=== PATIENT | female | born 2005 | race American Indian/Alaskan Native ===

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

== ENCOUNTER 2024-05-04 17:45 | Emergency (ER) | payer MEDICAID, SELFPAY ==
[2024-05-04 17:50] VITALS: BP 134/69; PULSE 88; RESP 18; TEMP 36.5; O2SAT 97; BMI 49.4
[2024-05-04 18:14] LABS: Strep Grp A by PCR Rapid Negative (Negative)
[2024-05-04 18:45] LABS: Influenza A - CEPHEID Flu A NEGATIVE (NEGATIVE); Influenza B - CEPHEID Flu B NEGATIVE (NEGATIVE); Respiratory Syncytial Virus Negative (Negative)
[2024-05-04 18:46] LABS: COVID-19 CEPHEID 4-PLEX PCR Negative (Negative)
--- NOTE | 2024-05-04 19:24 | ED.URI ---
HPI - URI/Sore Throat General Chief Complaint: Upper Respiratory Symptoms Stated Complaint: Difficulty breathing, dizzy, cough, sore throat Time Seen by Provider: 05/04/24 19:07 Source: patient Mode of arrival: Ambulatory History of Present Illness HPI Narrative: Patient is a 19-year-old female presenting today with ongoing sore throat and cough. Reports that she has had this for about 1 month. She was seen evaluated clinic last week tested negative for strep but continues to have pain with swallowing. She has nonproductive cough sometimes feel short of breath. Has an albuterol inhaler at home which says isn't working. She was body aches but no fever. She was allergic to ibuprofen she has not taken any Tylenol. Has tried taking Mucinex DM for 2 doses and also reports no help. She was coughing in the room bronchospastic like cough Related Data Previous Rx's Medication Instructions Recorded benzonatate 200 mg capsule 200 mg PO TID PRN cough #20 caps 05/04/24 prednisone 20 mg tablet 40 mg (2 x 20 mg) PO DAILY #10 tabs 05/04/24 Allergies Allergy/AdvReac Type Severity Reaction Status Date / Time ibuprofen AdvReac Hives Verified 05/04/24 17:54 Patient History Social History Smoking Status: Current every day smoker Smoking Status: Current every day smoker tobacco type: cigarettes and vaping alcohol intake frequency: other Exam Initial Vital Signs Initial Vital Signs: Vital Signs Temperature 97.7 F 05/04/24 17:50 Pulse Rate 88 05/04/24 17:50 Respiratory Rate 18 05/04/24 17:50 Blood Pressure 134/69 05/04/24 17:50 Pulse Oximetry 97 05/04/24 17:50 Oxygen Delivery Method Room Air 05/04/24 17:50 GENERAL: Alert 19-year-old female and in no acute distress. HEENT: Head atraumatic,EOMI, pupils reactive, face symmetric, moist mucous membranes PHARYNX: No erythema no uvula swelling no deviation airway patent no exudative tonsils or cervical lymphadenopathy CARDIOVASCULAR: Regular rate and rhythm without murmurs, rubs or gallops. RESPIRATORY: Breath sounds equal bilaterally, no wheezes rales or rhonchi. ABDOMEN: Soft, nontender. Normoactive bowel sounds all 4 quadrants. No guarding or rebound. EXTREMITIES: Normal range of motion, no clubbing or edema. Neurovascularly intact NEUROLOGICAL: Alert and oriented x4.Normal gait and speech. Cranial nerves II through XII grossly intact. SKIN: Warm, dry, no laceration, no petechiae, no rashes or lesions. Course Orders Ordered: ED Orders 05/04/24 17:58 Covid-19 + FLU A/B + RSV - PCR Stat Strep Grp A by PCR Rapid Stat Throat Culture Stat 05/04/24 19:23 Chest [XR chest 2V] Stat Vital Signs Vital signs: Vital Signs - 8 hr 05/04/24 17:50 05/04/24 20:20 Temperature 97.7 F 98.3 F Pulse Rate 88 84 Respiratory Rate 18 18 Blood Pressure 134/69 144/76 H Pulse Oximetry 97 97 Oxygen Delivery Method Room Air Room Air MDM - URI/Sore Throat Lab Data Labs: Lab Results 05/04/24 Range/Units 17:58 SARS-CoV-2 (PCR) Negative (Negative) Influenza A (RT-PCR) Flu a negative (NEGATIVE) Influenza B (RT-PCR) Flu b negative (NEGATIVE) RSV (PCR) Negative (Negative) Group A Strep (PCR) Negative (Negative) Imaging Data Chest x-ray: Radiologist's Impression: PROCEDURE: XR CHEST 2V INDICATIONS: cough TECHNIQUE: 2 views of the chest were acquired. COMPARISON: None. FINDINGS: Surgical changes and devices: None. Lungs and pleura: Lungs are clear. No pleural effusions or pneumothorax. Mediastinum: Mediastinal contours are normal. Heart size is normal. Bones and chest wall: No suspicious bony abnormalities. Soft tissues appear unremarkable. IMPRESSION: No acute cardiopulmonary pathology. Dictated by: Blair Levi M.D. on 05/04/2024 at 19:45 Approved by: Blair Levi M.D. on 05/04/2024 at 19:46 [facility] Narrative Medical decision making narrative: Patient is a relatively healthy 19-year-old female who presents today with ongoing sore throat. She was bronchospastic cough. Viral panel negative strep negative backup strep is pending. I suspect viral illness chest x-ray negative. She already has albuterol at home offered albuterol here but declines. She is allergic to ibuprofen we will try some steroid to see if that helps Tessalon Perles. But at this time no need for antibiotics. #65: Appropriate Treatment for Patients with URI x The patient was diagnosed with upper respiratory infection and was not prescribed or dispensed an antibiotic. [SATISFIES MIPS PERFORMANCE] [] The patient has competing comorbid condition within the last 12 months. The comorbid condition was [] (e.g., neutropenia, cystic fibrosis, chronic bronchitis, pulmonary edema, respiratory failure, rheumatoid lung disease). [MIPS PERFORMANCE EXCEPTION/EXCLUSION] [] The patient is already on antibiotics, or has taken them within the last 30 days. [MIPS PERFORMANCE EXCEPTION/EXCLUSION] [] The patient had a competing diagnosis of [] (e.g. acute otitis media, chronic sinusitis, cellulitis, UTI, etc.). [MIPS PERFORMANCE EXCEPTION/EXCLUSION] [] The patient was diagnosed with upper respiratory infection and was prescribed or dispensed an antibiotic. [DOES NOT SATISFY MIPS PERFORMANCE] Discharge Plan Departure Patient Disposition: Home Clinical Impression: Upper respiratory infection Instructions: DI for Viral Upper Respiratory Infection -- Adult Activity Restrictions/Additional Instructions: *You have been diagnosed with upper respiratory infection *What to do: At this time strep is negative viral panel negative chest x-ray does not show evidence of pneumonia. No need for antibiotics at this time. Do recommend continuing using Mucinex we can try some Tessalon Perles you can also use your albuterol inhaler *Continue to take medications as directed Tessalon Perles every 8 hours as needed for coughing Prednisone 40 mg once a day for 5 days *Follow up with your primary care provider in 2-3 days or call [phone] *Return to ER if you should have inability to swallow not taking in liquids [or] any new, worsening or concerning symptoms Prescriptions: New benzonatate 200 mg capsule 200 mg PO TID PRN (Reason: cough) Qty: 20 0RF prednisone 20 mg tablet 40 mg PO DAILY Qty: 10 0RF Stand Alone Forms: Patient Portal/API/Survey
[2024-05-04 20:20] VITALS: BP 144/76; PULSE 84; RESP 18; TEMP 36.8; O2SAT 97
== END 2024-05-04 20:21 | disposition home or self-care (01) ==
PROVIDERS: Emergency Medicine; Emergency Provider Emergency Medicine
DX: J06.9 Acute upper respiratory infection, unspecified (principal); B95.4 Other streptococcus as the cause of diseases classified elsewhere; F17.200 Nicotine dependence, unspecified, uncomplicated
CPT/HCPCS: 87635; 87400 ×2; 87420; 0241U; 71046; 87070; 87077; 87147; 87651; 99281; 99283

== ENCOUNTER 2024-09-06 10:17 | Emergency (ER) | payer MEDICAID, SELFPAY ==
[2024-09-06 10:22] VITALS: BP 125/77; PULSE 99; RESP 19; TEMP 36.6; O2SAT 97; BMI 48.7
--- NOTE | 2024-09-06 10:36 | PC.NURSE ---
Pt reports having hives develop around 6pm yesterday. States she was exposed to freshly cut grass and pollen tree. She also states at 1430 she took a shower with new shampoo/body wash products. Pt reports taking 1 Benadryl at 0000. Pt presents with persistent hives throughout body that have caused her itching and pain. Pt states the hives on her chest cause her SOB; pt able to ambulate w/o issue, respirations regular and unlabored, pt able to manage secretions, no oral airway edema.
--- NOTE | 2024-09-06 10:50 | ED.SKABFB ---
HPI - Skin/Abscess/Foreign Bdy General Chief complaint: Skin/Abscess/Foreign Body Stated complaint: Hives Time Seen by Provider: 09/06/24 10:49 Source: patient Mode of arrival: Ambulatory Limitations: no limitations History of Present Illness HPI narrative: 19-year-old female presents with allergic reaction to either new body wash, stress, or new food items she tried breaking out in full body rash since last evening unrelieved with 1 dose of Benadryl. Patient denies difficulty swallowing chest pain shortness of breath fever chills. She denies any foreign travel new pets or new medications. Other than what is stated 14 point review of system is negative Related Data Previous Rx's ?Medication ?Instructions ?Recorded benzonatate 200 mg capsule 200 mg PO TID PRN cough #20 caps 05/04/24 prednisone 20 mg tablet 40 mg (2 x 20 mg) PO DAILY #10 tabs 05/04/24 famotidine 20 mg tablet (Pepcid) 20 mg PO DAILY #5 tabs 09/06/24 prednisone 20 mg tablet 20 mg PO BID #10 tabs 09/06/24 Allergies Allergy/AdvReac Type Severity Reaction Status Date / Time ibuprofen AdvReac Hives Verified 09/06/24 10:22 Review of Systems Review of Systems ROS Unobtainable: All systems reviewed & are unremarkable except as noted in HPI and below Patient History tobacco type: cigarettes and vaping alcohol intake frequency: other Exam Narrative Exam Narrative: GENERAL: [19] year old patient appears stated age. Well-developed patient, in mild distress. HEAD: Atraumatic. Normocephalic. EYES: Pupils equal round and reactive. Extraocular motions intact. No scleral icterus. No injection or drainage. ENT: Nose without bleeding, purulent drainage. Throat without erythema, tonsillar hypertrophy or exudate. Airway patent. NECK: Trachea midline. Non tender CARDIOVASCULAR: Regular rate and rhythm without murmurs, gallops, or rubs. RESPIRATORY: Clear to auscultation. Breath sounds equal bilaterally. No wheezes, rales, or rhonchi. GASTROINTESTINAL: Abdomen soft, non-tender, nondistended. EXTREMITIES: No edema or joint tenderness. BACK: Nontender without deformity or crepitance. No flank tenderness. NEURO: AOx3. SKIN: No rash or erythema of visible areas. Urticarial hives arms legs back chest abdomen legs. Initial Vital Signs Initial Vital Signs: Vital Signs Temperature 98 F 09/06/24 10:22 Pulse Rate 99 H 09/06/24 10:22 Respiratory Rate 19 09/06/24 10:22 Blood Pressure 125/77 09/06/24 10:22 Pulse Oximetry 97 09/06/24 10:22 Oxygen Delivery Method Room Air 09/06/24 10:22 Course Vital Signs Vital signs: Vital Signs - 8 hr 09/06/24 10:22 Temperature 98 F Pulse Rate 99 H Respiratory Rate 19 Blood Pressure 125/77 Pulse Oximetry 97 Oxygen Delivery Method Room Air MDM - Skin/Abscess/Foreign Bdy MDM Narrative Medical decision making narrative: Vital signs, nurse triage note, medication list, previous ER visits, all reviewed. Patient given Benadryl, Pepcid, prednisone, here. Patient will be discharged on pepcid, prednisone and to take Benadryl as needed for itch and rash. Differential diagnosis included allergic reaction, contact dermatitis, cellulitis, abscess, mrsa. Return with new or worsening symptoms. Discharge Plan Departure Patient Disposition: Home Clinical Impression: Allergic reaction Qualifiers: Encounter type: initial encounter Qualified Code(s): T78.40XA - Allergy, unspecified, initial encounter Instructions: DI for General Allergic Reactions Activity Restrictions/Additional Instructions: Return with new or worsening symptoms. Take your medicines as directed. Take Benadryl as needed for itch and rash. Follow up with PCP next week if no improvement in symptoms. Prescriptions: New prednisone 20 mg tablet 20 mg PO BID Qty: 10 0RF famotidine [Pepcid] 20 mg tablet 20 mg PO DAILY Qty: 5 0RF No Action benzonatate 200 mg capsule 200 mg PO TID PRN (Reason: cough) Qty: 20 0RF prednisone 20 mg tablet 40 mg PO DAILY Qty: 10 0RF Stand Alone Forms: Patient Portal/API
== END 2024-09-06 11:17 | disposition home or self-care (01) ==
PROVIDERS: Emergency Provider Family Medicine
DX: T78.40XA Allergy, unspecified, initial encounter (principal); R21 Rash and other nonspecific skin eruption
CPT/HCPCS: 99281